=== PATIENT | male | born 1995 | race Two or more races ===

== ENCOUNTER 2021-01-12 01:16 | Emergency (ER) | payer MEDICAID, OTHER ==
[~2021-01-12] VITALS: Ht 182.9 cm; Wt 81.6 kg
[2021-01-12 01:36] VITALS: BP 129/88
== END 2021-01-12 01:43 ==
LOC: EDBD 01:16 → ER 01:16
DX: Z04.89 Encounter for examination and observation for other specified reasons (principal)